=== PATIENT | female | born 1975 | race Asian ===

== ENCOUNTER → 2016-12-14 | Outpatient (CLI) | payer OTHER | LOC: FIMAGING 12:24 | PROVIDERS: ATTEND Nurse Practitioner Women's Health | DX: R10.2 Pelvic and perineal pain (principal) ==

== ENCOUNTER 2018-06-23 13:46 | Emergency (ER) | payer OTHER ==
--- NOTE | 2018-06-23 15:03 | EDPHY ---
HPI/HX/ROS/PE/MDM Narrative: CHIEF COMPLAINT: Left-sided pain HPI: The patient is a 42-year-old female with no significant past medical history but a strong family history of coronary artery disease and stroke. She complains of approximately 3 days of pain the left side of her head, left neck and left arm. She states this pain is made worse with some positions of her head. She describes it as sharp with a vague sense of weakness in her upper left arm. She denies any vision changes. She denies chest pain. She denies recent fall or injury. REVIEW OF SYSTEMS: Aside from elements discussed in the HPI, a comprehensive 10-point review of systems was reviewed and is negative. PMH: No known medical history. Family history positive for coronary artery disease and stroke. SOCIAL HISTORY: Denies alcohol or drug abuse. PHYSICAL EXAM: General:Patient is alert, in no acute distress. ENT:Eyes are normal to inspection. ENT inspection normal. Neck: Normal inspection. Full range of motion. Range of motion to the left exacerbates pain in arm and neck. Respiratory:No respiratory distress. Breath sounds normal bilaterally. Cardiovascular: Regular rate and rhythm. Strong peripheral pulses. Normal cap refill. Abdomen:The abdomen is nontender to palpation. There are no peritoneal signs. There are normal bowel sounds. Back: Normal to inspection. No tenderness to palpation. Skin: Normal color. No rash. Warm and dry. Extremities: Normal appearance. Full range of motion. Neuro: Oriented x3. Normal motor function. Normal sensory function. No pronator drift. Cranial nerves intact. MDM: This is a young healthy female with signs and symptoms that seem most consistent with cervical radiculopathy, given radiation of pain, worsening with position and no focal neuro deficits. Her cardiac workup is totally normal, with negative ECG and troponin after days of symptoms. Her only concerning feature is a strong family history of vascular disease, which raises concern for possible vessel dissection or stroke. I think these are very unlikely but given family history I discussed possibility with her and offered her CTA of the head and neck to rule out disease. We discussed options risks of CT imaging , and she would prefer to defer further testing and follow-up with her PCP as an outpatient. We discussed strict return precautions. She understands I am unable to rule out potentially life-threatening or severely disabiling disease without further testing. - Data Points Laboratory Results: Laboratory Results 06/23/18 15:09 06/23/18 15:09 06/23/18 06/23/18 06/23/18 15:13 15:09 15:09 WBC RBC Hgb Hct MCV MCH MCHC RDW Plt Count MPV Neut % (Auto) Lymph % (Auto) Carbon % (Auto) Eos % (Auto) Baso % (Auto) Nucleat RBC Rel Count Absolute Neuts (auto) Absolute Lymphs (auto) Absolute Monos (auto) Absolute Eos (auto) Absolute Basos (auto) Absolute Nucleated RBC Immature Gran % Immature Gran # Sodium 141 mEq/L mEq/L (135-145) Potassium 3.9 mEq/L mEq/L (3.3-5.0) Chloride 104 mEq/L mEq/L (97-110) Carbon Dioxide 26 mEq/l mEq/l (22-31) Anion Gap 11 mEq/L mEq/L (6-14) BUN 8 mg/dL mg/dL (7-23) Creatinine 0.7 mg/dL mg/dL (0.6-1.0) Estimated GFR > 60 Glucose 81 mg/dL mg/dL (70-100) Calcium 9.6 mg/dL mg/dL (8.5-10.4) POC Troponin I 0.00 ng/mL ng/mL (0.00-0.08) Beta HCG, Qual NEGATIVE 06/23/18 15:09 WBC 4.76 10^3/uL 10^3/uL (3.80-9.50) RBC 4.76 10^6/uL 10^6/uL (4.18-5.33) Hgb 13.9 g/dL g/dL (12.6-16.3) Hct 41.3 % % (38.0-47.0) MCV 86.8 fL fL (81.5-99.8) MCH 29.2 pg pg (27.9-34.1) MCHC 33.7 g/dL g/dL (32.4-36.7) RDW 12.8 % % (11.5-15.2) Plt Count 254 10^3/uL 10^3/uL (150-400) MPV 9.1 fL fL (8.7-11.7) Neut % (Auto) 55.7 % % (39.3-74.2) Lymph % (Auto) 35.3 % % (15.0-45.0) Carbon % (Auto) 6.9 % % (4.5-13.0) Eos % (Auto) 1.7 % % (0.6-7.6) Baso % (Auto) 0.2 % L % (0.3-1.7) Nucleat RBC Rel Count 0.0 % % (0.0-0.2) Absolute Neuts (auto) 2.65 10^3/uL 10^3/uL (1.70-6.50) Absolute Lymphs (auto) 1.68 10^3/uL 10^3/uL (1.00-3.00) Absolute Monos (auto) 0.33 10^3/uL 10^3/uL (0.30-0.80) Absolute Eos (auto) 0.08 10^3/uL 10^3/uL (0.03-0.40) Absolute Basos (auto) 0.01 10^3/uL L 10^3/uL (0.02-0.10) Absolute Nucleated RBC 0.00 10^3/uL 10^3/uL (0-0.01) Immature Gran % 0.2 % % (0.0-1.1) Immature Gran # 0.01 10^3/uL 10^3/uL (0.00-0.10) Sodium Potassium Chloride Carbon Dioxide Anion Gap BUN Creatinine Estimated GFR Glucose Calcium POC Troponin I Beta HCG, Qual Point of Care Test Results: Chemistry 06/23/18 15:13 POC Troponin I 0.00 ng/mL ng/mL (0.00-0.08) General Time Seen by Provider: 06/23/18 14:25 Initial Vital Signs: Initial Vital Signs Temperature (C) 37.1 C 06/23/18 13:58 Heart Rate 68 06/23/18 13:58 Respiratory Rate 18 06/23/18 13:58 Blood Pressure 122/84 H 06/23/18 13:58 O2 Sat (%) 98 06/23/18 13:58 O2 Delivery Mode Room Air Allergies/Adverse Reactions: No Known Allergies Allergy (Unverified 06/23/18 13:58) Home Medications: Medication Instructions Recorded Synthroid 06/23/18 Departure - Departure Disposition: Home, Routine, Self-Care Clinical Impression: Cervical radiculopathy Condition: Good Instructions: Acute Neck Pain (ED) Additional Instructions: Follow-up with your primary doctor within 48 hours for re-evaluation. Return to the ED immediately for fever, worsening pain, numbness or weakness of arm or other concerns. We recommend you take a daily full strength aspirin until re- evaluation. Referrals: Kriss Jackson MD [Primary Care Provider] - As per Instructions
--- NOTE | 2018-06-23 15:14 | CPEKG ---
Test Reason : OPEN Blood Pressure : / mmHG Vent. Rate : 066 BPM Atrial Rate : 066 BPM P-R Int : 155 ms QRS Dur : 078 ms QT Int : 388 ms P-R-T Axes : 054 075 056 degrees QTc Int : 407 ms Sinus rhythm Confirmed by Delmy Rahman ([id number]) on 06/23/2018 3:14:37 PM Referred By: Confirmed By:Delmy Rahman
[2018-06-23 15:22] LABS: PLATELET COUNT 254 10^3/uL (150-400)
[2018-06-23] MEDS ORDERED: KETOROLAC 30 MG/1 ML SDV IVP ONE (16:04)
[2018-06-23 16:45] VITALS: BP 112/74
== END 2018-06-23 16:45 | disposition home or self-care (01) ==
DX: M54.12 Radiculopathy, cervical region (principal); Z82.49 Family history of ischemic heart disease and other diseases of the circulatory system
CPT/HCPCS: 84484-PO; 96374; J1885